=== PATIENT | female | born 1995 | race Caucasian/White ===

== ENCOUNTER 2018-03-23 19:11 | Emergency (ER) | payer MEDICAID ==
[~2018-03-23] VITALS: Ht 154.9 cm; Wt 68.0 kg
[2018-03-23] MEDS ORDERED: ACETAMINOPHEN 325MG TABLET PO ONE (19:45)
[2018-03-23 21:07] VITALS: BP 107/68
== END 2018-03-23 21:11 | disposition home or self-care (01) ==
LOC: ER 19:11
DX: O9A.212 Injury, poisoning and certain other consequences of external causes complicating pregnancy, second trimester (principal); S20.219A Contusion of unspecified front wall of thorax, initial encounter; Z3A.18 18 weeks gestation of pregnancy; V49.88XA Car occupant (driver) (passenger) injured in other specified transport accidents, initial encounter; Y93.89 Activity, other specified; Y92.89 Other specified places as the place of occurrence of the external cause; Y99.8 Other external cause status
CPT/HCPCS: 76805; 99284

== ENCOUNTER 2018-05-16 09:21 | Observation (INO) | payer MEDICAID ==
[~2018-05-16] VITALS: Ht 154.9 cm; Wt 70.3 kg
[2018-05-16] MEDS ORDERED: PREN-118 PO (10:11)
== END 2018-05-16 12:50 | disposition home or self-care (01) ==
LOC: L&D 09:21
PROVIDERS: ADMIT Specialist; ATTEND Specialist
DX: O46.92 Antepartum hemorrhage, unspecified, second trimester (principal); Z3A.26 26 weeks gestation of pregnancy
CPT/HCPCS: 76805; 99281; G0378